=== PATIENT | male | born 1995 | race Hispanic/Latino ===

== ENCOUNTER 2020-03-30 21:01 | Observation (INO) | payer OTHER, SELFPAY ==
[2020-03-30 21:36] LABS: #Eosinphils 0.1 thou/uL (0.0-0.7); #Lymphocytes 2.2 thou/uL (1.20-3.40); #Monocytes 1.6 thou/uL (0.11-0.59); #Neutrophils 6.7 thou/uL (1.40-6.50); %Basophils 0.2 % (0.0-1.0); %Eosinophils 0.6 % (0.0-10.0); %Lymphocytes 21.1 % (21.0-51.0); %Monocytes 14.8 % (0.0-10.0); %Neutrophils 63.2 % (42.0-75.0); Hemoglobin 15.2 g/dL (14.0-18.0); Mean Corpuscular HGB CONC 34.8 g/dL (32.0-36.0); Mean Corpuscular Hemoglobin 32.5 pg (27.0-31.0); Mean Corpuscular Volume 93.2 fL (78.0-98.0); Mean Platelet Volume 7.8 fL (7.4-10.4); Platelet Count 197 thou/uL (130-400); Red Blood Cell (RBC) Count 4.68 mill/uL (4.70-6.10); White Blood Cell (WBC) Count 10.6 thou/uL (4.8-10.8)
[2020-03-30 21:54] LABS: Cocaine Metabolite Screen Detected (NotDetected); Medtox Reader # READER 4
[2020-03-30 21:55] LABS: ALT (SGPT) 15 U/L (8-55); AST (SGOT) 15 U/L (5-34); Acetaminophen Less than 6.0 mcg/mL (10.0-30.0); Albumin 4.3 g/dL (3.5-5.0); Alcohol Less than 10 mg/dL (Less than 10); Alkaline Phosphatase 101 U/L (40-110); Anion Gap 16 mmol/L (10-20); BUN (Urea Nitrogen) 12 mg/dL (8.9-20.6); Bilirubin, Total 2.4 mg/dL (0.2-1.2); CK (CPK) 135 U/L (30-200); Calc. Creatinine Clearance 0 mL/min (70-130); Calcium 9.3 mg/dL (7.8-10.44); Carbon Dioxide 21 mmol/L (22-29); Chloride 102 mmol/L (98-107); Estimated GFR-MDRD 85; Globulin 3.1 g/dL (2.4-3.5); Glucose 80 mg/dL (70-105); Potassium 3.5 mmol/L (3.5-5.1); Protein, Total 7.4 g/dL (6.0-8.3); Salicylate Less than 8.0 mg/dL (15.0-30.0); Sodium 135 mmol/L (136-145)
[2020-03-30 21:55] LABS: Amphetamine Detected (NotDetected); Barbiturates Screen Not Detected (NotDetected); Benzodiazepine Screen Not Detected (NotDetected); Medtox Control Line Valid? VALID (VALID); Methadone Not Detected (NotDetected); Methamphetamine Detected (NotDetected); Opiate Screen Not Detected (NotDetected); Oxycodone Screen Not Detected (NotDetected); Phencyclidine (PCP) Not Detected (NotDetected); THC/Cannabinoid Screen Not Detected (NotDetected); Tricyclic Screen Not Detected (NotDetected)
[2020-03-30] MEDS ORDERED: Lorazepam 2 MG/ML VIAL ONE ×3 (21:58→23:50)
[2020-03-30] MEDS ORDERED: diphenhydrAMINE 50 MG/ML VIAL ONE (23:10)
[2020-03-30] MEDS ORDERED: Aspirin Chewable 81 MG TAB ONE (23:26)
[2020-03-30] MEDS ORDERED: HYDROcodone/Acetaminophen 5/325 mg Tablet PO PRN (23:45)
[2020-03-30] MEDS ORDERED: Promethazine HCl 12.5 MG in Sodium Chloride 0.9% 50 ML IVPB PRN (23:45)
[2020-03-30] MEDS ORDERED: Acetaminophen 325 MG TAB PO PRN (23:45)
[2020-03-30] MEDS ORDERED: Labetalol HCl 100 MG/20 ML VIAL SLOW IVP PRN (23:45)
[2020-03-30] MEDS ORDERED: Morphine 2 MG/ML SYRINGE SLOW IVP PRN (23:45)
[2020-03-30] MEDS ORDERED: Ondansetron PF 4 MG/2 ML Vial IVP PRN (23:45)
[2020-03-30] MEDS ORDERED: hydrALAZINE 20 MG/ML VIAL SLOW IVP PRN (23:45)
[2020-03-30] MEDS ORDERED: Guaifenesin DM 100-10/5 ML UDCUP PO PRN (23:45)
[2020-03-30] MEDS ORDERED: cloNIDine 0.1 MG TAB PO PRN (23:45)
[2020-03-30] MEDS ORDERED: Lorazepam 2 MG/ML VIAL SLOW IVP PRN (23:47)
--- NOTE | 2020-03-30 23:49 | PDOC.HHP ---
Hospitalist HPI - History of Present Illness Numbness in hands, anxiety History of Present Illness: Patient is a 24 year old with no medical history who presents to ED for numbness in hands, anxiety. He reports was at a constitution party and drank yesterday appx 6 pm, reports malaise ever since, on my exam visibly anxious, he believes his friends may have given him drugs without him knowing. He was hyperventilating earlier, now RR 22, sinus tachycardia to 120s on monitor, improved somewhat with 2mg ativan in ED but still bad. Now patient feels better after reassurance. Denies chest pain. Heart was racing. Rate was 160s earlier. EKG sinus [address] changes. drug screen positive for cocaine, methamphetamine , amphetamine. Patient admitted for observation. Also got ASA and NS and benadryl. Hospitalist ROS - Review of Systems Constitutional: reports: malaise. denies: fever, chills, sweats, weakness, other Eyes: denies: pain, vision change, conjunctivae inflammation, eyelid inflammation, redness, other ENT: denies: ear pain, ear discharge, nose pain, nose discharge, nose congestion , mouth pain, mouth swelling, throat pain, throat swelling, other Respiratory: denies: cough, dry, shortness of breath, hemoptysis, SOB with excertion, pleuritic pain, sputum, wheezing, other Cardiovascular: denies: chest pain, palpitations, orthopnea, paroxysmal noc. dyspnea, edema, light headedness, other Gastrointestinal: denies: nausea, vomiting, abdominal pain, diarrhea, constipation, melena, hematochezia, other Genitourinary: denies: dysuria, frequency, incontinence, hematuria, retention, other Musculoskeletal: denies: neck pain, shoulder pain, arm pain, back pain, hand pain, leg pain, foot pain, other Skin: denies: rash, lesions, komal, bruising, other Neurological: reports: numbness (in hands and feet), other (anxiety) All other systems reviewed; all pertinent +/- noted in HPI/Subj - Medication Medications: none reported Hospitalist History - Past Medical History Other Medical History: none - Past Surgical History Other Surgical History: scar surgery reported - Family History Family History: reports: diabetes mellitus - Social History Smoking Status: Current every day smoker (1/2 ppd) Alcohol: reports: Heavy (see hpi) Drugs: reports: cocaine, methamphetamine - Exam General - other findings: anxious affect Eye: PERRL, anicteric sclera ENT: normocephalic atraumatic, no oropharyngeal lesions, moist mucosa Neck: supple, symmetric, no JVD, no thyromegaly, no lymphadenopathy, no carotid bruit Heart: RRR, no murmur, no gallops, no rubs, normal peripheral pulses Respiratory: CTAB, no wheezes, no rales, no ronchi, normal chest expansion, no tachypnea, normal percussion Gastrointestinal: soft, non-tender, non-distended, normal bowel sounds, no palpable masses, no hepatomegaly, no splenomegaly, no bruit Extremities: no cyanosis, no clubbing, no edema Skin: normal turgor, no lesions, no rashes Neurological: cranial nerve grossly intact, normal sensation to touch, no weakness, no focal deficits, no new deficit Musculoskeletal: normal tone, normal strength, no muscle wasting Psychiatric - other findings: anxious affect Hospitalist Results - Labs Result Diagrams: 03/30/20 21:28 03/30/20 21:28 Lab results: WBC 10.6 thou/uL (4.8-10.8) 03/30/20 21:28 Hgb 15.2 g/dL (14.0-18.0) 03/30/20 21:28 Hct 43.6 % (42.0-52.0) 03/30/20 21:28 MCV 93.2 fL (78.0-98.0) 03/30/20 21:28 Plt Count 197 thou/uL (130-400) 03/30/20 21:28 Neutrophils % 63.2 % (42.0-75.0) 03/30/20 21:28 Sodium 135 mmol/L (136-145) L 03/30/20 21:28 Potassium 3.5 mmol/L (3.5-5.1) 03/30/20 21:28 Chloride 102 mmol/L (98-107) 03/30/20 21:28 Carbon Dioxide 21 mmol/L (22-29) L 03/30/20 21:28 BUN 12 mg/dL (8.9-20.6) 03/30/20 21:28 Creatinine 1.05 mg/dL (0.7-1.3) 03/30/20 21:28 Glucose 80 mg/dL (70-105) 03/30/20 21:28 Calcium 9.3 mg/dL (7.8-10.44) 03/30/20 21:28 Total Bilirubin 2.4 mg/dL (0.2-1.2) H 03/30/20 21:28 AST 15 U/L (5-34) 03/30/20 21:28 ALT 15 U/L (8-55) 03/30/20 21:28 Alkaline Phosphatase 101 U/L (40-110) 03/30/20 21:28 Creatine Kinase 135 U/L (30-200) 03/30/20 21:28 Troponin I Less than 0.010 ng/mL (< 0.028) 03/30/20 21:28 Serum Total Protein 7.4 g/dL (6.0-8.3) 03/30/20 21:28 Albumin 4.3 g/dL (3.5-5.0) 03/30/20 21:28 Hospitalist H&P A/P - Plan Plan: 24M with no PMH admitted for: # polysubstance abuse # sinus tachycardia # numbness in hands # tachypnea - suspect due to acute intoxication, however will require observation for heart rate up to 160, will order high rate IVF to flush sustem and manage conservatively for now, suspect primary respiratory alkalosis causing numbness no focal signs to indicate further workup needed.
[2020-03-31] MEDS: Sodium Chloride 0.9% 1,000 ML IV SCH ×2 (02:07→08:42)
[2020-03-31 02:29] VITALS: BMI 32.5
[2020-03-31 04:25] LABS: #Basophils 0.1 thou/uL (0.0-0.2); #Eosinphils 0.1 thou/uL (0.0-0.7); #Lymphocytes 2.9 thou/uL (1.20-3.40); #Monocytes 1.4 thou/uL (0.11-0.59); #Neutrophils 4.9 thou/uL (1.40-6.50); %Basophils 0.6 % (0.0-1.0); %Eosinophils 1.2 % (0.0-10.0); %Lymphocytes 31.1 % (21.0-51.0); %Monocytes 14.9 % (0.0-10.0); %Neutrophils 52.2 % (42.0-75.0); Hemoglobin 14.3 g/dL (14.0-18.0); Mean Corpuscular HGB CONC 32.8 g/dL (32.0-36.0); Mean Corpuscular Hemoglobin 30.8 pg (27.0-31.0); Platelet Count 192 thou/uL (130-400); Red Blood Cell (RBC) Count 4.63 mill/uL (4.70-6.10); White Blood Cell (WBC) Count 9.4 thou/uL (4.8-10.8)
[2020-03-31 04:46] LABS: ALT (SGPT) 14 U/L (8-55); AST (SGOT) 15 U/L (5-34); Alkaline Phosphatase 94 U/L (40-110); Anion Gap 10 mmol/L (10-20); BUN (Urea Nitrogen) 9 mg/dL (8.9-20.6); Bilirubin, Direct 0.7 mg/dL (0.1-0.3); Bilirubin, Total 2.3 mg/dL (0.2-1.2); Calc. Creatinine Clearance 165 mL/min (70-130); Calcium 8.7 mg/dL (7.8-10.44); Carbon Dioxide 25 mmol/L (22-29); Chloride 112 mmol/L (98-107); Estimated GFR-MDRD Greater than 90; Glucose 105 mg/dL (70-105); Magnesium 2.3 mg/dL (1.6-2.6); Potassium 4.8 mmol/L (3.5-5.1); Protein, Total 6.9 g/dL (6.0-8.3); Sodium 142 mmol/L (136-145)
[2020-03-31] MEDS ORDERED: Haloperidol Lactate 5 MG/ML VIAL IM PRN (08:41)
[2020-03-31] MEDS ORDERED: Lorazepam 2 MG/ML VIAL SLOW IVP PRN (08:42)
[2020-03-31] MEDS ORDERED: hydrALAZINE 20 MG/ML VIAL SLOW IVP PRN (08:45)
[2020-03-31] MEDS ORDERED: Enoxaparin Sodium 30 MG/0.3 ML SYRINGE SC SCH (09:00)
[2020-03-31] MEDS ORDERED: Famotidine 20 MG TAB PO SCH (09:00)
[2020-03-31] MEDS ORDERED: Polyethylene Glycol 3350 17 GM Packet PO SCH (09:00)
[2020-03-31 12:17] VITALS: BP 138/83; TEMP 98
--- NOTE | 2020-03-31 15:56 | DIS ---
DATE OF ADMISSION: 03/30/2020 DATE OF DISCHARGE: 03/31/2020 HOSPITAL COURSE: Mr. Sullivan is a 24-year-old male with no known medical history, who presented to the ED with numbness in his hands, anxiety. He was at a libertarian and drank as well as consumed recreational drugs, which he eventually admitted to. He was diagnosed with cocaine, amphetamine, and methamphetamine abuse. The patient initially exhibited visual hallucinations and hyperdynamic vital signs; however, he improved later during his inpatient stay. The patient was requested to stay the night for continued monitoring and observation, but decided to leave AMA. Before he left, he was given discharge papers including information regarding seeking help for substance abuse. He was discharged hemodynamically stable with no complaints with the exception of cold extremities. PHYSICAL EXAMINATION: VITAL SIGNS: Blood pressure 138/83, 98 Fahrenheit, heart rate 74, respiratory rate 16, oxygen saturation 100% on room air. GENERAL: No apparent distress. Alert and oriented. HEENT: Normocephalic, atraumatic. PERRL. Pupils are 3 to 4 mm, equal and reactive to light. CARDIAC: Regular rate and rhythm. No murmurs, gallops, or rubs. LUNGS: Clear to auscultation bilaterally. No wheezing, rales, or rhonchi. ABDOMEN: Nontender, nondistended. Normal bowel sounds. EXTREMITIES: Cold feet and hands. Radial and pedal pulses, +2 bilateral bilaterally. MEDICATIONS: The patient was discharged on no medications. Job ID: [id number]
== END 2020-03-31 13:15 | disposition left against medical advice (07) ==
LOC: ERS 21:01 → 2SE 23:20
PROVIDERS: ADMIT Internal Medicine; ATTEND Internal Medicine
DX: F19.10 Other psychoactive substance abuse, uncomplicated (principal); R20.0 Anesthesia of skin; F41.9 Anxiety disorder, unspecified; R00.0 Tachycardia, unspecified; F17.210 Nicotine dependence, cigarettes, uncomplicated
CPT/HCPCS: 36415; 80048; 80053; 80076; 80306; 80307; 82550; 83735; 84443; 84484; 85025; 93005; 96361; 96372; 96374; 96376; G0378; J1200; J1650; J2060; J2405

== ENCOUNTER 2021-03-08 04:23 | Emergency (ER) | payer SELFPAY ==
[2021-03-08] MEDS ORDERED: Lidocaine 1% PF 5 ML VIAL ONE (04:28)
== END 2021-03-08 05:13 | disposition home or self-care (01) ==
LOC: ERS 04:23
DX: T16.2XXA Foreign body in left ear, initial encounter (principal); F17.210 Nicotine dependence, cigarettes, uncomplicated
CPT/HCPCS: 99282

== ENCOUNTER 2022-09-29 17:53 | Emergency (ER) | payer SELFPAY ==
[~2022-09-29 17:53] MED LIST: Iopamidol-370 76% 500 ML 1 ML ONE
[2022-09-29] MEDS ORDERED: CEFAZOLIN 1 GM VIAL ONE (17:59)
[2022-09-29] MEDS ORDERED: Boostrix 0.5 ML (Tdap) VIAL (>/=7 yrs of age) ONE (18:00)
[2022-09-29] MEDS ORDERED: FENTANYL 50 MCG/ML 1 ML VIAL ONE (18:00)
[2022-09-29 18:07] LABS: Actual Bicarbonate (HCO3a) 19.6 mEq/L (22-28); Analyzer IN Cardio ER; Base Excess (BEa) -5.5 mEq/L (-2.0 to +3.0); CO2 Tension 37.6 mmHg (35.0-45.0); Calcium, Ionized (arterial) 0.94 mmol/L (1.12-1.30); Carboxyhemoglobin (COHb) 0.1 gm% (0.0-3.0); Hemoglobin (Hb) 16.3 g/dL (14.0-18.0); O2 Tension (PaO2), arterial 218.8 mmHg (80.0-100.0); Potassium - ABG Lab 4.17 mmol/L (3.70-5.30); pH, Arterial 7.34 (7.35-7.45)
[2022-09-29 18:10] LABS: Puncture Site LRA
[2022-09-29 18:16] LABS: #Eosinphils 0.4 thou/uL (0.0-0.7); #Lymphocytes 5.3 thou/uL (1.20-3.40); #Monocytes 1.2 thou/uL (0.11-0.59); #Neutrophils 11.1 thou/uL (1.40-6.50); %Basophils 0.2 % (0.0-1.0); %Lymphocytes 29.4 % (21.0-51.0); %Monocytes 6.7 % (0.0-10.0); %Neutrophils 61.7 % (42.0-75.0); Hemoglobin 15.8 g/dL (14.0-18.0); Mean Corpuscular Hemoglobin 32.5 pg (27.0-31.0); Mean Corpuscular Volume 98.4 fl (78.0-98.0); Mean Platelet Volume 7.7 fL (7.4-10.4); Platelet Count 260 10x3/uL (130-400); RBC Distribution Width 11.8 % (11.5-14.5); Red Blood Cell (RBC) Count 4.87 mill/uL (4.70-6.10)
[2022-09-29] MEDS ORDERED: Midazolam HCl 2 mg/2 ml Vial ONE ×2 (18:21→19:17)
[2022-09-29 18:22] LABS: Bacteria/HPF None Seen HPF (None Seen); Bilirubin Negative (Negative); Blood, Urine 3+ (Negative); Clarity Clear (Clear); Glucose, Urine (Dipstick) Normal (Negative); Ketone, Urine Negative (Negative); Leukocyte Negative Leu/uL (Negative); Nitrite Negative (Negative); Protein, Urine (Dipstick) Negative (Neg-Trace); RBC/HPF Greater than 50 HPF (0-3); Specific Gravity, Urine 1.026 (1.002-1.036); Squamous Epithelial None Seen HPF (0-3); Urobilinogen Normal mg/dL (Less than 2); WBC/HPF 0-3 HPF (0-3); pH, Urine 5.5 (5.0-9.0)
[2022-09-29] MEDS ORDERED: Fentanyl CADD 100 ML IV SCH (18:30)
[2022-09-29 18:31] LABS: Amphetamine Not Detected (NotDetected); Barbiturates Screen Not Detected (NotDetected); Benzodiazepine Screen Not Detected (NotDetected); Cocaine Metabolite Screen Detected (NotDetected); Methadone Not Detected (NotDetected); Methamphetamine Not Detected (NotDetected); Opiate Screen Not Detected (NotDetected); Oxycodone Screen Not Detected (NotDetected); Phencyclidine (PCP) Not Detected (NotDetected); THC/Cannabinoid Screen Detected (NotDetected); Tricyclic Screen Not Detected (NotDetected)
[2022-09-29 18:35] LABS: ALT (SGPT) 58 U/L (8-55); AST (SGOT) 123 U/L (5-34); Albumin 3.8 g/dL (3.5-5.0); Alcohol Less than 10 mg/dL (Less than 10); Alkaline Phosphatase 87 U/L (40-110); Anion Gap 16 mmol/L (10-20); BUN (Urea Nitrogen) 21 mg/dL (8.9-20.6); Bilirubin, Total 0.5 mg/dL (0.2-1.2); Calc. Creatinine Clearance 0 mL/min (70-130); Calcium 8.2 mg/dL (7.8-10.44); Carbon Dioxide 19 mmol/L (22-29); Chloride 104 mmol/L (98-107); Estimated GFR 82; Globulin 2.9 g/dL (2.4-3.5); Glucose 184 mg/dL (70-105); Lipase 46 U/L (8-78); Potassium 4.3 mmol/L (3.5-5.1); Protein, Total 6.7 g/dL (6.0-8.3); Sodium 135 mmol/L (136-145)
[2022-09-29] MEDS ORDERED: Calcium Chloride 1 GM/10 ML Abboject SYRINGE ONE (18:35)
[2022-09-29] MEDS ORDERED: Gentamicin 300 MG in Sodium Chloride 0.9% 100 ML IVPB SCH (18:45)
[2022-09-29 18:50] LABS: Acetaminophen Less than 10.0 mcg/mL (10.0-30.0); Alcohol Less than 10 mg/dL (Less than 10); CK (CPK) 1047 U/L (30-200); Salicylate Less than 8.0 mg/dL (15.0-30.0)
[2022-09-29] MEDS ORDERED: Dextrose 5% in Water 1,000 ML IV PRN (18:52)
[2022-09-29] MEDS ORDERED: TETANUS, DIPHTHERIA TOX,ADULT (TDVAX) 0.5 ML VIAL IM ONE (18:52)
[2022-09-29] MEDS ORDERED: Ondansetron PF 4 MG/2 ML Vial IVP PRN (18:52)
[2022-09-29] MEDS ORDERED: Dextrose 50% Abboject 50 ML SYRINGE SLOW IVP PRN (18:52)
[2022-09-29] MEDS ORDERED: hydrALAZINE 20 MG/ML VIAL SLOW IVP PRN (18:52)
[2022-09-29] MEDS ORDERED: HumaLOG 300 UNITS/3 ML VIAL SC PRN (18:52)
[2022-09-29 18:55] LABS: INR-International Normal Ratio 1.4; PTT 33.1 sec (22.9-36.1)
[2022-09-29] MEDS ORDERED: FENTANYL 500 MCG/10 ML VIAL 2,000 MCG in Sodium Chloride 0.9% 60 ML IV PRN (18:55)
[2022-09-29] MEDS ORDERED: Sodium Chloride 0.9% 1,000 ML IV SCH (19:00)
[2022-09-29] MEDS ORDERED: Esmolol 2,500 MG/250 ML 250 ML ONE (19:06)
[2022-09-29] MEDS ORDERED: Fentanyl CADD 100 ML IV PRN (19:30)
[2022-09-29] MEDS ORDERED: Famotidine/PF 20 mg/2ml Vial SLOW IVP SCH (21:00)
== END 2022-09-29 21:08 | disposition short-term general hospital (02) ==
LOC: ERS 17:53
DX: I71.00 Dissection of unspecified site of aorta (principal); S12.110A Anterior displaced Type II dens fracture, initial encounter for closed fracture; S02.642A Fracture of ramus of left mandible, initial encounter for closed fracture; S52.611A Displaced fracture of right ulna styloid process, initial encounter for closed fracture; S72.401A Unspecified fracture of lower end of right femur, initial encounter for closed fracture; S06.360A Traumatic hemorrhage of cerebrum, unspecified, without loss of consciousness, initial encounter; F17.210 Nicotine dependence, cigarettes, uncomplicated; V23.49XA Other motorcycle driver injured in collision with car, pick-up truck or van in traffic accident, initial encounter; W22.8XXA Striking against or struck by other objects, initial encounter; Z23 Encounter for immunization
CPT/HCPCS: 36415; 36430; 36556; 36600; 51702; 70450; 70498; 71045; 71260; 72125; 72170; 74177; 80053; 80306; 80307; 81003; 81015; 82550; 82805; 83605; 83690; 85025; 85610; 85730; 86850; 86900; 86901; 90471; 90715; 93005; 94760; 96365; 96366; 96367; 96368; 96375; 96376; G0390; J0690; J1580; J2250; J3010; J3490; P9016; P9048; Q9967